=== PATIENT | female | born 1940 | race Caucasian/White ===

== ENCOUNTER → 2017-06-16 | Outpatient (CLI) | payer OTHER ==
[~2017-06-16] MED LIST: IOPAMIDOL (ISOVUE 370) 100 ML BTL IV ONE
== END ==
LOC: FIMAGING 08:08
PROVIDERS: ATTEND Internal Medicine Cardiovascular Disease
DX: I71.4 Abdominal aortic aneurysm, without rupture (principal); R91.1 Solitary pulmonary nodule
CPT/HCPCS: 74175; Q9967

== ENCOUNTER 2018-05-08 11:00 | Emergency (ER) | payer OTHER ==
[2018-05-09 03:50] VITALS: BP 150/80
[2018-05-10 09:38] LABS: PLATELET COUNT 230 10^3/uL (150-400)
--- NOTE | 2018-05-10 16:43 | EDPHY ---
H & P Stated Complaint: POSS CVA Time Seen by Provider: 05/08/18 11:00 - Personal History Current Tetanus/Diphtheria Vaccine: Yes Current Tetanus Diphtheria and Acellular Pertussis (TDAP): Yes - Medical/Surgical History Hx Diabetes: No Other PMH: CVA, COPD, PULMONARY FIBROSIS - Social History Smoking Status: Never smoked Constitutional: Initial Vital Signs Heart Rate 59 L 05/08/18 11:00 Respiratory Rate 16 05/08/18 11:00 Blood Pressure 126/74 H 05/08/18 11:00 O2 Sat (%) 97 05/08/18 11:00 O2 Delivery Mode Room Air Allergies/Adverse Reactions: latex Allergy (Intermediate, Verified 01/01/14 15:09) SKIN BREAKDOWN, REDNESS Penicillins Allergy (Intermediate, Verified 01/01/14 15:09) Diarrhea Medical Decision Making ED Course/Re-evaluation: This note was created during prolonged hospital-wide EHR downtime and may be incomplete or contain inaccuracies to due circumstance limitations. 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 Yesterday, she first noticed a general headache then developed word-finding difficulty that she describes as "inability to form words." She also felt like she wasn't "totally in control of my body," but denies unilateral weakness or paresthesias. The speech difficulty lasted 20 minutes before resolving completely. She continues to have a slight headache today. She denies any difficulty walking. She takes a full-strength aspirin daily and no anticoagulants. No recent illness or trauma. REVIEW OF SYSTEMS: A 10 point review of systems was performed and is negative with the exception of the elements mentioned in the history of present illness. PHYSICAL EXAM: HR, BP, O2 Sat, RR. Temp noted General Appearance: Alert, well hydrated, appropriate, and non-toxic appearing. Head: Atraumatic without scalp tenderness or obvious injury Eyes: Pupils equal, round, reactive to light and accommodation, EOMI, no trauma , no injection. Nose: Atraumatic, no rhinorrhea, clear. Throat: There is no erythema or exudates, no lesions, normal tonsils, mucus membranes moist. Neck: Supple, non-tender, no lymphadenopathy. Respiratory: No retractions, no distress, no wheezes, and no accessory muscle use. Lungs are clear to auscultation bilaterally. Cardiovascular: Regular rate and rhythm, no murmurs, rubs, or gallops. Good capillary refill all extremities. Gastrointestinal: Abdomen is soft, non-tender, non-distended, no masses, no rebound, no guarding, no peritoneal signs. Musculoskeletal: Normal active ROM of all extremities, atraumatic. Neurological: Alert, appropriate, and interactive. The patient has non-focal cranial nerves, motor, sensory, and cerebellar exam. Skin: No rashes, good turgor, no nodules on palpation. PAST MEDICAL HISTORY: Pulmonary fibrosis with chronic cough PAST SURGICAL HISTORY: Noncontributory SOCIAL HISTORY: at bedside. Freight Representative: Dr. Maher DIAGNOSTICS/PROCEDURES/CRITICAL CARE TIME: Brain MRI w/out: negative DIFFERENTIAL DIAGNOSIS: The differential diagnosis for the patient's neurologic deficits included but was not limited to peripheral causes, central causes including CVA, TIA, electrolyte abnormalities and dehydration, cardiogenic causes, atypical causes like migraine syndrome. MEDICAL DECISION MAKING: Normal neuro exam. No anticoagulants. Plan for IV, labs, brain MRI to rule out stroke or other neurologic etiology. Labs unremarkable. Brain MRI is negative. Reassessed patient and discussed findings. Recommended admission for full TIA work up including echocardiogram and carotid US, but patient declined and would prefer to complete this evaluation as an outpatient. Discussed risks and return precautions. She will be discharged in good condition with referral to neurology. She is comfortable with this plan. This note was created during prolonged hospital-wide EHR downtime and may be incomplete or contain inaccuracies to due circumstance limitations. - Data Points Laboratory Results: Laboratory Results 05/08/18 11:40 05/08/18 11:40 05/08/18 05/08/18 11:40 11:40 WBC 5.52 10^3/uL 10^3/uL (3.80-9.50) RBC 4.10 10^6/uL L 10^6/uL (4.18-5.33) Hgb 12.8 g/dL g/dL (12.6-16.3) Hct 37.9 % L % (38.0-47.0) MCV 92.4 fL fL (81.5-99.8) MCH 31.2 pg pg (27.9-34.1) MCHC 33.8 g/dL g/dL (32.4-36.7) RDW 13.1 % % (11.5-15.2) Plt Count 230 10^3/uL 10^3/uL (150-400) MPV 8.9 fL fL (8.7-11.7) Neut % (Auto) 70.5 % % (39.3-74.2) Lymph % (Auto) 18.8 % % (15.0-45.0) Dupage % (Auto) 7.2 % % (4.5-13.0) Eos % (Auto) 2.4 % % (0.6-7.6) Baso % (Auto) 0.9 % % (0.3-1.7) Nucleat RBC Rel Count 0.0 % % (0.0-0.2) Absolute Neuts (auto) 3.89 10^3/uL 10^3/uL (1.70-6.50) Absolute Lymphs (auto) 1.04 10^3/uL 10^3/uL (1.00-3.00) Absolute Monos (auto) 0.40 10^3/uL 10^3/uL (0.30-0.80) Absolute Eos (auto) 0.13 10^3/uL 10^3/uL (0.03-0.40) Absolute Basos (auto) 0.05 10^3/uL 10^3/uL (0.02-0.10) Absolute Nucleated RBC 0.00 10^3/uL 10^3/uL (0-0.01) Immature Gran % 0.2 % % (0.0-1.1) Immature Gran # 0.01 10^3/uL 10^3/uL (0.00-0.10) Sodium 139 mEq/L mEq/L (135-145) Potassium 4.5 mEq/L mEq/L (3.3-5.0) Chloride 106 mEq/L mEq/L (97-110) Carbon Dioxide 20 mEq/l L mEq/l (22-31) Anion Gap 13 mEq/L mEq/L (8-16) BUN 22 mg/dL mg/dL (7-23) Creatinine 1.0 mg/dL mg/dL (0.6-1.0) Estimated GFR 54 Glucose 90 mg/dL mg/dL (70-100) Calcium 8.8 mg/dL mg/dL (8.5-10.4) Total Bilirubin 6.0 mg/dL H mg/dL (0.1-1.4) Conjugated Bilirubin 6.0 mg/dL H mg/dL (0.0-0.5) Unconjugated Bilirubin 0.0 mg/dL mg/dL (0.0-1.1) AST 22 IU/L IU/L (14-46) ALT 26 IU/L IU/L (9-52) Alkaline Phosphatase 108 IU/L IU/L (38-126) Total Protein 6.8 g/dL g/dL (6.3-8.2) Albumin 3.8 g/dL g/dL (3.5-5.0) Departure - Departure Disposition: Home, Routine, Self-Care Condition: Good Referrals: Patient,NotPresent [Primary Care Provider] - As per Instructions Report Scribed for: Dion Wise Report Scribed by: Karla Narayanan
== END 2018-05-08 14:15 | disposition home or self-care (01) ==
DX: G45.9 Transient cerebral ischemic attack, unspecified (principal); J44.9 Chronic obstructive pulmonary disease, unspecified; Z91.040 Latex allergy status